=== PATIENT | female | born 1945 | race Two or more races ===

== ENCOUNTER 2025-05-20 12:06 | Emergency (ER) | payer OTHER ==
[~2025-05-20] VITALS: Ht 160 cm; Wt 73.9 kg
[2025-05-20] MEDS ORDERED: TENORMIN50 M1 PO (13:22)
[2025-05-20] MEDS ORDERED: 8 HOUR650 MG PO (20:48)
== END 2025-05-20 21:19 | disposition home or self-care (01) ==
LOC: ER 12:06
DX: G89.11 Acute pain due to trauma (principal); M25.561 Pain in right knee; M25.562 Pain in left knee; M25.532 Pain in left wrist; M25.512 Pain in left shoulder; R51.9 Headache, unspecified